=== PATIENT | female | born 2000 | race American Indian/Alaskan Native ===

== ENCOUNTER 2021-02-13 18:40 | Inpatient (IN) | payer SELFPAY ==
[2021-02-13] MEDS ORDERED: ONDANSETRON 4 MG/2 ML INJ IV ONE (20:09)
[2021-02-13] MEDS ORDERED: ACETAMINOPHEN 500 MG TAB PO ONE (20:09)
[2021-02-13] MEDS ORDERED: dexAMETHasone 20 MG/5 ML VIAL IV ONE (20:09)
[2021-02-13] MEDS ORDERED: SODIUM CHLORIDE 0.9% 1000 ML 1,000 ML IV ONE (20:09)
[2021-02-13] MEDS ORDERED: AZITHROMYCIN 250 MG TAB PO ONE (20:09)
[2021-02-13] MEDS ORDERED: cefTRIAXone/NS 1 GM/50 ML 1 GM/50 ML BAG IV ONE (20:11)
--- NOTE | 2021-02-13 20:18 | Emergency Department Report ---
ED General Adult HPI - General Chief complaint: Dyspnea/Respdistress Stated complaint: +COVID/COUGH Time Seen by Provider: 02/13/21 20:08 Source: patient Mode of arrival: Ambulatory Limitations: No Limitations - History of Present Illness Initial comments: Patient is a 21-year-old female who presents with cough fevers chills body aches x1 week. States Covid positive x1 week. Patient states nausea vomiting generalized malaise. There is no wheezing no stridor patient denies history of asthma or bronchitis. Patient is tolerating p.o. liquids at this time. Patient drove self to ED patient is alert oriented x3 amatory with steady gait. Symptoms are exacerbated by activity. Symptoms are relieved by nothing tried. Patient has not seen Covid treatment other than quarantine for the past week. Severity scale (0 -10): 8 - Related Data Allergies Allergy/AdvReac Type Severity Reaction Status Date / Time No Known Allergies Allergy Verified 02/13/21 21:04 ED Review of Systems ROS: Stated complaint: +COVID/COUGH Other details as noted in HPI Constitutional: chills, fever, malaise Eyes: denies: eye pain, eye discharge, vision change ENT: congestion. denies: ear pain, throat pain Respiratory: cough, shortness of breath. denies: stridor, wheezing Cardiovascular: denies: chest pain, palpitations Endocrine: no symptoms reported Gastrointestinal: nausea, vomiting. denies: abdominal pain, diarrhea, constipation Genitourinary: denies: urgency, dysuria, discharge Musculoskeletal: denies: back pain, joint swelling, arthralgia Skin: denies: rash, lesions Neurological: headache, weakness Psychiatric: denies: anxiety, depression Hematological/Lymphatic: denies: easy bleeding, easy bruising ED Past Medical Hx - Past Medical History Previous Medical History?: No - Surgical History Past Surgical History?: No ED Physical Exam - General Limitations: No Limitations General appearance: alert, in no apparent distress - Head Head exam: Present: atraumatic, normocephalic - Eye Eye exam: Present: normal appearance, EOMI Pupils: Present: normal accommodation - ENT ENT exam: Present: normal orophraynx, mucous membranes moist, TM's normal bilaterally - Neck Neck exam: Present: normal inspection, full ROM. Absent: tenderness, lymphadenopathy - Respiratory Respiratory exam: Present: normal lung sounds bilaterally, chest wall tenderness (right anterior lateral chest wall tenderness to deep palpation). Absent: respiratory distress, wheezes, stridor - Cardiovascular Cardiovascular Exam: Present: regular rate, normal rhythm, tachycardia, normal heart sounds. Absent: systolic murmur, diastolic murmur, rubs, gallop - GI/Abdominal GI/Abdominal exam: Present: soft, normal bowel sounds. Absent: distended, tenderness, guarding, rebound, rigid, bruit, hernia - Rectal Rectal exam: Present: deferred - Extremities Exam Extremities exam: Present: normal inspection, full ROM, normal capillary refill. Absent: tenderness - Back Exam Back exam: Present: normal inspection, full ROM. Absent: CVA tenderness (R), CVA tenderness (L) - Neurological Exam Neurological exam: Present: alert, oriented X3, CN II-XII intact, normal gait - Psychiatric Psychiatric exam: Present: normal affect, normal mood - Skin Skin exam: Present: warm, dry, intact, normal color. Absent: rash ED Course Vital Signs 02/13/21 02/13/21 02/13/21 19:56 19:58 23:22 Temperature 103.1 F H 103.1 F H 98.6 F Pulse Rate 122 H 122 H 110 H Respiratory 20 20 18 Rate Blood Pressure 121/68 Blood Pressure 121/68 118/62 [Right] O2 Sat by Pulse 92 92 90 Oximetry 02/13/21 02/14/21 23:29 00:08 Temperature Pulse Rate 107 H Respiratory 22 18 Rate Blood Pressure Blood Pressure [Right] O2 Sat by Pulse 90 85 Oximetry ED Medical Decision Making - Radiology Data Radiology results: report reviewed, image reviewed Difuse bilateral pulmonary opacities - Medical Decision Making Symptoms mildly improved with medications given in ED however O2 sat remains 89 to 90% on room air. 87% with ambulation plan admit diagnosis COVID-19, hypoxia, Covid pneumonia, consult ED attending concurs with same admit to hospitalist recommendation, hospitalist called at this time for patient care handoff discussed treatment plan with patient patient verbalized agreement and understanding with same. Pt care handoff at this time, pt verbalized agreement with treatment plan. Critical care attestation.: If time is entered above; I have spent that time in minutes in the direct care of this critically ill patient, excluding procedure time. ED Disposition Clinical Impression: Pneumonia due to COVID-19 virus Disposition: ADMITTED INPATIENT Is pt being admited?: Yes Does the pt Need Aspirin: No Condition: Stable Instructions: Bacterial Pneumonia (ED) Referrals: PRIMARY CARE, [Primary Care Provider] - 3-5 Days Time of Disposition: 00:34
--- NOTE | 2021-02-13 20:50 | XRay Report ---
CHEST 2 VIEWS INDICATION / CLINICAL INFORMATION: sob. COMPARISON: None available. FINDINGS: SUPPORT DEVICES: None. HEART / MEDIASTINUM: No significant abnormality. LUNGS / PLEURA: Diffuse bilateral pulmonary opacities No pneumothorax. ADDITIONAL FINDINGS: No significant additional findings. IMPRESSION: Diffuse bilateral pulmonary opacities Signer Name: Hector Du MD Signed: 02/13/2021 7:51 PM Workstation Name: [id number]
--- NOTE | 2021-02-14 00:52 | History and Physical Report ---
History of Present Illness Date of examination: 02/14/21 Date of admission: 02/13/21 23:45 Chief complaint: Shortness of breath History of present illness: Patient is a 21-year-old female seen at bedside in the ED. She presented to the emergency room with chief complaint of cough, fever, chills and body aches about 1 week. Patient tested for Covid positive last week. Patient states nausea vomiting generalized malaise. Patient on oxygen per nasal cannula at the time of assessment. She reports she also has shortness of breath but the oxygen is helping relieve her symptoms. I reviewed the chest x-ray patient has diffuse bilateral pulmonary opacity. Patient denies tobacco use, alcohol use and illicit drug use. Patient is on isolation per Covid protocol. Infectious disease consulted. Past History Past Medical History: No medical history Past Surgical History: No surgical history Social history: no significant social history Family history: no significant family history Medications and Allergies Allergies Allergy/AdvReac Type Severity Reaction Status Date / Time No Known Allergies Allergy Verified 02/13/21 21:04 Review of Systems Constitutional: fatigue, weakness, malaise Ears, nose, mouth and throat: no epistaxis, no bleeding gums Cardiovascular: shortness of breath Respiratory: cough, shortness of breath, dyspnea on exertion Gastrointestinal: no melena Genitourinary Female: no dysuria, no urinary frequency Neurological: no head injury Hematologic/Lymphatic: no easy bruising, no easy bleeding Allergic/Immunologic: no urticaria Exam - Constitutional Vitals: Temp Pulse Resp BP Pulse Ox 98.6 F 92 H 11 L 113/49 95 02/13/21 23:22 02/14/21 00:31 02/14/21 00:31 02/14/21 00:31 02/14/21 00:31 General appearance: Present: mild distress, obese - EENT Eyes: Present: PERRL ENT: hearing intact, clear oral mucosa - Neck Neck: Present: supple, normal ROM - Respiratory Respiratory effort: normal Respiratory: bilateral: CTA - Cardiovascular Heart rate: 92 Heart Sounds: Present: S1 & S2. Absent: rub, click - Extremities Extremities: pulses symmetrical, No edema Peripheral Pulses: within normal limits - Abdominal General gastrointestinal: Present: soft, non-tender, non-distended, normal bowel sounds Female genitourinary: Present: normal - Integumentary Integumentary: Present: clear, warm, dry - Musculoskeletal Musculoskeletal: gait normal, strength equal bilaterally - Psychiatric Psychiatric: appropriate mood/affect, intact judgment & insight - Neurologic Neurologic: CNII-XII intact, moves all extremities - Allied Health Allied health notes reviewed: nursing Results - Labs CBC & Chem 7: 02/13/21 23:55 Labs: Abnormal lab results 02/13/21 Range/Units 23:55 Glucose 129 H (65-100) mg/dL Assessment and Plan - Patient Problems (1) Acute respiratory failure with hypoxia Current Visit: Yes Status: Acute Plan to address problem: Respiratory carebronchodilator and oxygen supplement Chest x-ray done- showed diffuse bilateral pulmonary opacity ABGs and serial chest x-ray (2) Pneumonia due to COVID-19 virus Current Visit: Yes Status: Acute Plan to address problem: Airborne and contact isolation per Covid protocol Empiric antibiotics and systemic steroid Ascorbic acid, zinc sulfate, and vitamin D supplement Encourage use of incentive spirometer and prone position Infectious disease consultedfollow-up with plan of care Monitor inflammatory markers (3) Obesity (BMI 30-39.9) Current Visit: Yes Status: Acute Plan to address problem: Discussed lifestyle modificationweight management and healthy diet (4) DVT prophylaxis Current Visit: Yes Status: Acute Plan to address problem: Subcutaneous Lovenox
[2021-02-14] MEDS ORDERED: ONDANSETRON 4 MG/2 ML INJ IV PRN (00:59)
[2021-02-14] MEDS ORDERED: IBUPROFEN 600 MG TAB PO PRN (00:59)
[2021-02-14] MEDS ORDERED: NALOXONE 0.4 MG/1 ML INJ IV PRN (00:59)
[2021-02-14] MEDS ORDERED: SENNOSIDES 8.6 MG TAB PO PRN (00:59)
[2021-02-14] MEDS ORDERED: oxyCODONE /ACETAMINOPHEN 5-325MG TAB PO PRN (00:59)
[2021-02-14] MEDS ORDERED: ACETAMINOPHEN 325 MG TAB PO PRN (00:59)
[2021-02-14] MEDS ORDERED: ALUM-MAG HYDROXIDE-SIMETHICONE 200-200-20MG/5ML ORAL LIQD 30 ML PO PRN (00:59)
[2021-02-14] MEDS ORDERED: METOCLOPRAMIDE 10 MG/2 ML INJ IV PRN (00:59)
[2021-02-14] MEDS ORDERED: MAGNESIUM HYDROXIDE (MOM) ORAL LIQD UDC PO PRN (00:59)
[2021-02-14] MEDS ORDERED: SODIUM CHLORIDE 0.9% 1000 ML 1,000 ML IV SCH (01:00)
[2021-02-14] MEDS ORDERED: traZODone 50 MG TAB PO PRN (01:05)
[2021-02-14 03:33] LABS: C-Reactive Protein 2.2 mg/dL (0.00-1.30)
[2021-02-14 07:46] LABS: Mean Corpuscular HGB Conc 30 % (30-34); Mean Corpuscular Volume 71 fl (79-97); Platelet Count 206 K/mm3 (140-440); Red Cell Distribution Width 19.1 % (13.2-15.2)
[2021-02-14 07:54] LABS: Alanine Aminotransferase 44 units/L (7-56); Albumin 4.1 g/dL (3.9-5); BUN/Creatinine Ratio 15; Blood Urea Nitrogen 16 mg/dL (7-17); Calcium 8.6 mg/dL (8.4-10.2); Hemolysis Index 5
[2021-02-14 08:04] LABS: Hematocrit 35.5 % (30.3-42.9); Hemoglobin 10.8 gm/dl (10.1-14.3)
[2021-02-14] MEDS: dexAMETHasone 4 MG/ML VIAL IV SCH (10:31)
[2021-02-14] MEDS: ENOXAPARIN 40 MG/0.4 ML INJ SUB-Q SCH (10:31)
[2021-02-14] MEDS: FAMOTIDINE 20 MG TAB PO SCH (10:32)
[2021-02-14] MEDS: ASCORBIC ACID 500 MG TAB PO SCH (10:32)
[2021-02-14] MEDS: ZINC SULFATE 220 MG CAP PO SCH (10:32)
[2021-02-14] MEDS: CHOLECALCIFEROL (VIT D3) 1000 UNIT (25 mcg) TAB PO SCH (10:33)
--- NOTE | 2021-02-14 12:45 | Consultation ---
History of Present Illness - Reason for Consult Consult date: 02/14/21 - History of Present Illness 21-year-old female past medical history morbid obesity presented to hospital complaining of cough, fevers, chills. This began approximately 1 week prior to admission, and she tested positive for Covid around the time of onset. She complains of associated shortness of breath and nausea and vomiting. Febrile to 103 with a white count of 5. In-house Covid testing pending. Normal renal function. Elevated inflammatory markers. Pending procalcitonin. Blood cultures no growth so far. Currently on ceftriaxone and azithromycin with dexamethasone. Currently on supplemental oxygen. Imaging personally reviewed: Chest x-ray: Diffuse pulmonary opacities Review of systems: Deferred to reduce to the risk of transmission of COVID-19 Past History Past Medical History: No medical history Past Surgical History: No surgical history Social history: no significant social history Family history: no significant family history Medications and Allergies Allergies Allergy/AdvReac Type Severity Reaction Status Date / Time No Known Allergies Allergy Verified 02/13/21 21:04 Active Meds: Active Medications Acetaminophen (Acetaminophen 325 Mg Tab) 650 mg PO Q4H PRN PRN Reason: Pain MILD(1-3)/Fever >100.5/COSBY Al Hydrox/Mg Hydrox/Simethicone (Alum-Mag Hydroxide-Simethicone [id number]/5ml Oral Liqd 30 Ml) 30 ml PO Q4H PRN PRN Reason: Indigestion Ascorbic Acid (Ascorbic Acid 500 Mg Tab) 500 mg PO QDAY [facility] Last Admin: 02/14/21 10:32 Dose: 500 mg Documented by: Cholecalciferol (Cholecalciferol (Vit D3) 1000 Unit (25 Mcg) Tab) 1,000 unit PO QDAY [facility] Last Admin: 02/14/21 10:33 Dose: 1,000 unit Documented by: Dexamethasone (Dexamethasone 4 Mg/Ml Vial) 6 mg IV DAILY [facility] Stop: 02/22/21 10:01 Last Admin: 02/14/21 10:31 Dose: 6 mg Documented by: Enoxaparin Sodium (Enoxaparin 40 Mg/0.4 Ml Inj) 40 mg SUB-Q QDAY [facility] Last Admin: 02/14/21 10:31 Dose: 40 mg Documented by: Famotidine (Famotidine 20 Mg Tab) 20 mg PO BID [facility] Last Admin: 02/14/21 10:32 Dose: 20 mg Documented by: Ceftriaxone Sodium (Rocephin/Ns 2 Gm/100 Ml) 2 gm in 100 mls @ 200 mls/hr IV Q24H [facility]; Protocol Azithromycin (Zithromax/Ns) 500 mg in 250 mls @ 250 mls/hr IV Q24H [facility]; Protocol Sodium Chloride (Nacl 0.9% 1000 Ml) 1,000 mls @ 42 mls/hr IV DIRECT CHAN Ibuprofen (Ibuprofen 600 Mg Tab) 600 mg PO Q6H PRN PRN Reason: Pain, Mild (1-3) Magnesium Hydroxide (Magnesium Hydroxide (Mom) Oral Liqd Udc) 30 ml PO Q4H PRN PRN Reason: Constipation Metoclopramide HCl (Metoclopramide 10 Mg/2 Ml Inj) 10 mg IV Q6H PRN PRN Reason: Nausea And Vomiting Naloxone HCl (Naloxone 0.4 Mg/1 Ml Inj) 0.1 mg IV Q2MIN PRN PRN Reason: Res Rate </= 8 or 02 SAT < 92% Ondansetron HCl (Ondansetron 4 Mg/2 Ml Inj) 4 mg IV Q8H PRN PRN Reason: Nausea And Vomiting Oxycodone/Acetaminophen (Oxycodone /Acetaminophen 5-325mg Tab) 1 tab PO Q6H PRN PRN Reason: Pain, Moderate (4-6) Senna (Sennosides 8.6 Mg Tab) 8.6 mg PO Q12HR PRN PRN Reason: Constipation Sodium Chloride (Sodium Chloride 0.9% 10 Ml Flush Syringe) 10 ml IV BID [facility] Last Admin: 02/14/21 10:32 Dose: 10 ml Documented by: Sodium Chloride (Sodium Chloride 0.9% 10 Ml Flush Syringe) 10 ml IV PRN PRN PRN Reason: LINE FLUSH Trazodone HCl (Trazodone 50 Mg Tab) 50 mg PO QHS PRN PRN Reason: Insomnia Zinc Sulfate (Zinc Sulfate 220 Mg Cap) 220 mg PO QDAY [facility] Last Admin: 02/14/21 10:32 Dose: 220 mg Documented by: Physical Examination - Physical Exam Narrative exam: Physical exam deferred to reduce risk of transmission of COVID-19. Please refer to primary team's note. - Constitutional Vitals: Vital Signs Temp Pulse Resp BP Pulse Ox 98.6 F 90 28 H 108/60 95 02/13/21 23:22 02/14/21 01:01 02/14/21 01:01 02/14/21 01:01 02/14/21 01:01 Temperature -Last 24 Hours Temperature 98.6 F Temperature 103.1 F Temperature 103.1 F Results - Labs CBC & Chem 7: 02/14/21 04:14 02/13/21 23:55 Labs: Abnormal lab results 02/13/21 02/13/21 02/13/21 Range/Units 23:55 23:55 23:55 MCV (79-97) fl MCH (28-32) pg RDW (13.2-15.2) % D-Dimer 374.09 H (0-234) ng/mlDDU Carbon Dioxide 19 L (22-30) mmol/L Glucose 129 H 129 H (65-100) mg/dL Hemoglobin A1c (4-6) % AST 108 H (5-40) units/L Lactate Dehydrogenase 640 H (91-180) units/L C-Reactive Protein 2.20 H (0.00-1.30) mg/dL 02/14/21 02/14/21 Range/Units 04:14 04:14 MCV 71 L (79-97) fl MCH 22 L (28-32) pg RDW 19.1 H (13.2-15.2) % D-Dimer (0-234) ng/mlDDU Carbon Dioxide (22-30) mmol/L Glucose (65-100) mg/dL Hemoglobin A1c 7.1 H (4-6) % AST (5-40) units/L Lactate Dehydrogenase (91-180) units/L C-Reactive Protein (0.00-1.30) mg/dL Assessment and Plan Cultures: Covid PCR positive as outpatient. A/P: 21-year-old female past medical history morbid obesity admitted with COVID- 19. #Severe COVID-19 pneumonia: Patient presented with a week of symptoms, chest x- ray with diffuse bilateral infiltrates, admission O2 sats 85% on room air. Inflammatory markers elevated #Acute hypoxemic respiratory failure: Likely secondary to COVID-19 infection. Currently on nasal cannula. #Morbid obesity Recs: -Dexamethasone 6 mg IV/PO daily for 10 days -Remdesivir 200 mg IV q day x 1 followed by 100 mg IV q day x 4 days -Obtain q48-72h inflammatory markers - ferritin, Ddimer, CRP, LDH -Continue ceftriaxone 2 gm IV qday and azithromycin 500 mg PO qday, if procalcitonin <0.25 ng/mL stop antibiotics -Anticoagulation per hospital protocol -Proning as able Thank you for the consult, we will continue to follow. Dr. Randhawa covering his weekend. Arvin Landa MD [facility] ([facility] O: [phone] F: [phone]
--- NOTE | 2021-02-14 17:10 | Event Note ---
Date: 02/14/21 21-year-old female presented with fever cough shortness of breath arthralgias myalgias. Patient diagnosed with COVID-19 1 week ago. Had also persistent nausea vomiting which is resolved. Patient today states she feels somewhat better but very weak. Was found to be hypoxemic upon presentation. Patient admitted for sepsis with COVID-19 pneumonia. Risk factors of morbid obesity most likely obesity hypoventilation syndrome. Await procalcitonin levels to evaluate discontinuation of antibiotics. Started on remdesivir, dexamethasone Follow-up inflammatory markers. O2 supplementation and wean as tolerated. Vitamin C vitamin D zinc supplementation.
[2021-02-14] MEDS: AZITHROMYCIN/NS 500 MG/250 ML 500 MG/250 ML BAG IV SCH (19:40)
[2021-02-14] MEDS: cefTRIAXone/NS 2 GM/100 ML 2 GM/100 ML BAG IV SCH (19:41)
[2021-02-15] MEDS: FAMOTIDINE 20 MG TAB PO SCH ×3 (00:41→22:29)
[2021-02-15] MEDS: guaiFENesin DM 200/20 MG ORAL LIQD 10 ML PO PRN (04:44)
[2021-02-15 05:52] LABS: Basophils % (Auto) 0.1 % (0.0-1.8); Hematocrit 34.4 % (30.3-42.9); Hemoglobin 10.8 gm/dl (10.1-14.3); Lymphocytes # (Auto) 0.8 K/mm3 (1.2-5.4); Mean Corpuscular HGB Conc 31 % (30-34); Mean Corpuscular Volume 70 fl (79-97); Monocytes # (Auto) 0.6 K/mm3 (0.0-0.8); Monocytes % (Auto) 6.7 % (0.0-7.3); Platelet Count 238 K/mm3 (140-440); Red Blood Count 4.91 M/mm3 (3.65-5.03); Red Cell Distribution Width 18.8 % (13.2-15.2)
[2021-02-15 06:09] LABS: BUN/Creatinine Ratio 20; Blood Urea Nitrogen 20 mg/dL (7-17); Calcium 8.5 mg/dL (8.4-10.2); Hemolysis Index 0
[2021-02-15 09:40] LABS: Alanine Aminotransferase 35 units/L (7-56); Albumin 3.8 g/dL (3.9-5)
[2021-02-15 09:59] LABS: Bilirubin,Direct < 0.2 mg/dL (0-0.2)
[2021-02-15] MEDS ORDERED: SODIUM CHLORIDE 0.9% 50 ML IVPB IV SCH (10:00)
[2021-02-15] MEDS ORDERED: REMDESIVIR 200 MG in SODIUM CHLORIDE 0.9% 250ML 250 ML IV ONE (10:00)
[2021-02-15] MEDS: CHOLECALCIFEROL (VIT D3) 1000 UNIT (25 mcg) TAB PO SCH (10:14)
[2021-02-15] MEDS: ASCORBIC ACID 500 MG TAB PO SCH (10:14)
[2021-02-15] MEDS: ENOXAPARIN 40 MG/0.4 ML INJ SUB-Q SCH (10:14)
[2021-02-15] MEDS: ZINC SULFATE 220 MG CAP PO SCH (10:14)
[2021-02-15] MEDS: dexAMETHasone 4 MG/ML VIAL IV SCH (10:14)
--- NOTE | 2021-02-15 14:05 | Progress Note ---
Assessment and Plan - Patient Problems (1) Acute respiratory failure with hypoxia Current Visit: Yes Status: Acute Plan to address problem: Secondary to COVID-19 pneumonia. (2) Obesity (BMI 30-39.9) Current Visit: Yes Status: Acute Plan to address problem: Decrease caloric intake. Increase exercise tolerance upon discharge. (3) Pneumonia due to COVID-19 virus Current Visit: Yes Status: Acute Plan to address problem: COVID-19 pneumonia. Remains hypoxic has failed walk study. -Continue to wean as tolerated -Continue remdesivir Continue steroid Continue zinc, vitamin C, vitamin D Continue empiric antibiotics. Anticipated discharge 1 to 2 days. (4) Diabetes Current Visit: Yes Status: Acute Plan to address problem: New onset diabetes would add Accu-Cheks before every meal and nightly. Hemoglobin A1c 7. This problem was going on prior to admission. Dietitian consult. Subjective Date of service: 02/15/21 Principal diagnosis: COVID-19 pneumonia. Interval history: Attempt to walk patient today. Patient failed walk test. Upon ambulation patient sats fell to 74% was placed back on 4 L O2. We will continue to wean as tolerated. Objective - Constitutional Vitals: Vital Signs - 12hr 02/15/21 02/15/21 02/15/21 03:45 06:05 08:00 Pulse Rate 109 H Respiratory 20 Rate Blood Pressure 119/70 O2 Sat by Pulse 96 97 96 Oximetry General appearance: Present: no acute distress - EENT Eyes: PERRL, EOM intact - Respiratory Respiratory: bilateral: diminished, rales - Cardiovascular Rhythm: regular Extremity abnormal: edema, other (Obese) - Musculoskeletal Musculoskeletal: 1, strength equal bilaterally - Neurologic Neurologic: moves all extremities - Psychiatric Psychiatric: memory intact, appropriate mood/affect, intact judgment & insight - Labs CBC & Chem 7: 02/15/21 04:56 02/15/21 04:56 Labs: Abnormal lab results 02/13/21 02/15/21 02/15/21 Range/Units Unknown 04:56 04:56 MCV 70 L (79-97) fl MCH 22 L (28-32) pg RDW 18.8 H (13.2-15.2) % Lymph % (Auto) 9.0 L (13.4-35.0) % Lymph # (Auto) 0.8 L (1.2-5.4) K/mm3 Seg Neutrophils % 84.2 H (40.0-70.0) % BUN 20 H (7-17) mg/dL Glucose 131 H (65-100) mg/dL AST (5-40) units/L Total Protein (6.3-8.2) g/dL Albumin (3.9-5) g/dL Coronavirus (PCR) Positive A (Negative) 02/15/21 Range/Units 04:56 MCV (79-97) fl MCH (28-32) pg RDW (13.2-15.2) % Lymph % (Auto) (13.4-35.0) % Lymph # (Auto) (1.2-5.4) K/mm3 Seg Neutrophils % (40.0-70.0) % BUN (7-17) mg/dL Glucose (65-100) mg/dL AST 65 H (5-40) units/L Total Protein 8.4 H (6.3-8.2) g/dL Albumin 3.8 L (3.9-5) g/dL Coronavirus (PCR) (Negative)
[2021-02-15] MEDS: AZITHROMYCIN/NS 500 MG/250 ML 500 MG/250 ML BAG IV SCH (22:29)
[2021-02-15] MEDS: cefTRIAXone/NS 2 GM/100 ML 2 GM/100 ML BAG IV SCH (22:29)
[2021-02-16 06:11] VITALS: BP 128/78
[2021-02-16 06:41] LABS: Alanine Aminotransferase 31 units/L (7-56); Albumin 3.5 g/dL (3.9-5); BUN/Creatinine Ratio 21; Blood Urea Nitrogen 15 mg/dL (7-17); Calcium 8.6 mg/dL (8.4-10.2); Hemolysis Index 0
[2021-02-16] MEDS: ENOXAPARIN 40 MG/0.4 ML INJ SUB-Q SCH (09:14)
[2021-02-16] MEDS: CHOLECALCIFEROL (VIT D3) 1000 UNIT (25 mcg) TAB PO SCH (09:15)
[2021-02-16] MEDS: dexAMETHasone 4 MG/ML VIAL IV SCH (09:15)
[2021-02-16] MEDS: ASCORBIC ACID 500 MG TAB PO SCH (09:15)
[2021-02-16] MEDS: ZINC SULFATE 220 MG CAP PO SCH (09:15)
[2021-02-16] MEDS: FAMOTIDINE 20 MG TAB PO SCH (09:15)
[2021-02-16] MEDS: guaiFENesin DM 200/20 MG ORAL LIQD 10 ML PO PRN (09:28)
--- NOTE | 2021-02-16 11:01 | Discharge Summary ---
Providers - Providers Date of Admission: 02/13/21 23:45 Date of discharge: 02/16/21 Attending physician: ERIK PEREZ 02/14/21 00:59 Consult to Physician [CONS] Routine Comment: Consulting Provider: AZAR TUCKER Physician Instructions: Reason For Exam: Covid positive Primary care physician: DOCUMENT PREPARATION SPECIALIST Hospitalization Condition: Stable Hospital course: 21-year-old female with morbid obesity presents with acute hypoxemic respiratory failure secondary to COVID-19 pneumonia. Patient stabilized with oxygen able to do well with O2. Defervesced well quickly with steroids as needed oxygen. Able to get up walk to the bathroom without any difficulty. No further episodes of diarrhea no nausea vomiting. Patient eating well remains hemodynamically stable. Will still require an additional 10 days of quarantine. Patient understand is aware. Will discharge home with home O2. Patient follow with primary care physician after quarantine. Disposition: 01 HOME / SELF CARE / HOMELESS Final Discharge Diagnosis (Prints w/discharge instructions): +1 acute hypoxemic respiratory failure #2 COVID-19 pneumonia #3 hyperglycemia - Discharge Diagnoses (1) Acute respiratory failure with hypoxia Status: Acute (2) Obesity (BMI 30-39.9) Status: Acute (3) Pneumonia due to COVID-19 virus Status: Acute (4) Diabetes Status: Acute Comment: Is been informed she has new onset diabetes. Will discharge patient home on Metformin. Provide diabetic education. Core Measure Documentation - Palliative Care Palliative Care/ Comfort Measures: Not Applicable - Core Measures Any of the following diagnoses?: none Exam - Constitutional Vitals: Temp Pulse Resp BP Pulse Ox 98.2 F 86 18 128/78 94 02/16/21 05:34 02/16/21 05:34 02/16/21 05:34 02/16/21 05:34 02/16/21 09:20 General appearance: Present: no acute distress, well-nourished - EENT Eyes: Present: PERRL ENT: hearing intact, clear oral mucosa - Neck Neck: Present: supple, normal ROM - Respiratory Respiratory effort: normal Respiratory: bilateral: CTA - Cardiovascular Heart Sounds: Present: S1 & S2. Absent: rub, click - Extremities Extremities: pulses symmetrical, No edema Peripheral Pulses: within normal limits - Abdominal General gastrointestinal: Present: soft, non-tender, non-distended, normal bowel sounds Female genitourinary: Present: normal - Integumentary Integumentary: Present: clear, warm, dry - Musculoskeletal Musculoskeletal: gait normal, strength equal bilaterally - Psychiatric Psychiatric: appropriate mood/affect, intact judgment & insight - Neurologic Neurologic: CNII-XII intact, moves all extremities Plan Activity: no restrictions Weight Bearing Status: Full Weight Bearing Diet: low cholesterol, diabetic Follow up with: PRIMARY CARE,MD [Primary Care Provider] - 3-5 Days Prescriptions: dexAMETHasone [Decadron] 6 mg PO DAILY 10 Days #10 vial metFORMIN XR [Glucophage XR] 500 mg PO QDAY #30 tablet Ibuprofen [Motrin 600 MG tab] 600 mg PO Q6H PRN #30 tablet PRN Reason: Pain, Mild (1-3) Ascorbic Acid [Vitamin C] 500 mg PO QDAY #30 tablet Cholecalciferol Vit D3 [Vitamin D3 1,000 UNIT TAB] 1,000 unit PO QDAY #20 tablet Zinc Sulfate 220 mg PO QDAY #30 capsule
--- NOTE | 2021-02-16 18:11 | Progress Note ---
Assessment and Plan Cultures: Covid PCR positive as outpatient. Blood cultures no growth today A/P: 21-year-old female past medical history morbid obesity admitted with COVID- 19. #Severe COVID-19 pneumonia: Patient presented with a week of symptoms, chest x- ray with diffuse bilateral infiltrates, admission O2 sats 85% on room air. Inflammatory markers elevated #Acute hypoxemic respiratory failure: Likely secondary to COVID-19 infection. Remains on 3 L #Morbid obesity Recs: -Repeat markers today -Dexamethasone 6 mg IV/PO daily for 10 days -Remdesivir 200 mg IV q day x 1 followed by 100 mg IV q day x 4 days -Obtain q48-72h inflammatory markers - ferritin, Ddimer, CRP, LDH -Continue ceftriaxone 2 gm IV qday total 5 days days and azithromycin 500 mg PO qday total 3 days -Anticoagulation per hospital protocol -Proning as able Wilma Randhawa MD [facility] ([facility]) Office [phone] Subjective Date of service: 02/16/21 Principal diagnosis: COVID-19 pneumonia. Interval history: Remains on 3 L, no desaturation, fever resolved. Objective - Exam Narrative Exam: Physical exam deferred to minimize COVID-19 transmission during pandemic. Internal medicine physical examination notes reviewed. - Constitutional Vitals: Vital Signs Temp Pulse Resp BP Pulse Ox 98.2 F 89 18 128/78 96 02/16/21 05:34 02/16/21 15:39 02/16/21 05:34 02/16/21 05:34 02/16/21 15:39 Temperature -Last 24 Hours Temperature 98.2 F Temperature 98.2 F - Labs CBC & Chem 7: 02/15/21 04:56 02/16/21 04:50 Labs: Abnormal lab results 02/16/21 Range/Units 04:50 Glucose 105 H (65-100) mg/dL AST 60 H (5-40) units/L Albumin 3.5 L (3.9-5) g/dL
[2021-02-16] MEDS ORDERED: REMDESIVIR 100 MG in SODIUM CHLORIDE 0.9% 250ML 250 ML IV SCH (21:00)
[2021-02-17] MEDS ORDERED: metFORMIN XR 500MG TAB PO SCH (08:00)
== END 2021-02-16 17:20 | disposition home or self-care (01) | DRG 177 ==
LOC: ED 18:40 → 3A 23:45
PROVIDERS: ADMIT Hospitalist; ATTEND Internal Medicine
PROC: XW033E5 Introduction of Remdesivir Anti-infective into Peripheral Vein, Percutaneous Approach, New Technology Group 5 (ICD-10-PCS; principal; 2021-02-15)
DX: U07.1 COVID-19 (principal); J96.01 Acute respiratory failure with hypoxia; J12.82 Pneumonia due to coronavirus disease 2019; Z68.39 Body mass index [BMI] 39.0-39.9, adult; Z71.3 Dietary counseling and surveillance; E66.01 Morbid (severe) obesity due to excess calories; E11.9 Type 2 diabetes mellitus without complications
CPT/HCPCS: 36415; 71046; 80048; 80053; 80076; 82728; 82947; 83036; 83520; 83615; 84145; 85025; 85027; 85379; 86140; 87040; 94760; G0378; J0456; J0696; J1100; J1650; J2405; J7030; J7050; U0003